=== PATIENT | male | born 1980 | race African-American/Black ===

== ENCOUNTER 2022-11-02 13:51 | Emergency (ER) | payer MEDICAID ==
[~2022-11-02] VITALS: Ht 188 cm; Wt 88.0 kg
[2022-11-02] MEDS ORDERED: LEVETIRACETAM 1000MG PREMIX 100 ML IV ONE (15:45)
[2022-11-02] MEDS ORDERED: ACETAMINOPHEN 325MG TABLET PO ONE (15:45)
[2022-11-02] MEDS ORDERED: TETANUS AND DIPHTHERIA TOX/PF 0.5ML SYR (ADULT) IM ONE (16:45)
[2022-11-02] MEDS ORDERED: LEVOFLOXACIN 500MG PREMIX 100 ML IV ONE (16:45)
[2022-11-02 17:36] LABS: HEMATOCRIT. 43.7 % (42.0-52.0); HEMOGLOBIN. 14.9 g/dL (14.0-18.0); MEAN CORPUSCULAR HEMOGLOBIN 33.4 pg (28.0-32.0); MEAN CORPUSCULAR VOLUME 97.9 fL (80.0-94.0); MEAN PLATELET VOLUME 8.7 fl (7.4-10.4); PLATELET 265 x1000/uL (130-400); RED BLOOD CELL COUNT 4.46 mill/uL (4.7-6.1); RED CELL DISTRIBUTION WIDTH 12.8 % (11.6-14.6)
[2022-11-02 17:43] LABS: CHLORIDE 101 mEq/L (98-107)
[2022-11-02 17:46] LABS: INR 0.9
[2022-11-02 17:50] LABS: ETHANOL BLOOD 133 mg/dL
[2022-11-02 17:54] LABS: CREATINE KINASE 289 IU/L (39-308)
[2022-11-02 18:22] LABS: PLATELET ESTIMATE NORMAL
[2022-11-02 21:10] VITALS: BP 148/88
== END 2022-11-03 06:16 | disposition left against medical advice (07) ==
LOC: ER 14:08 → CANBEDREQ 16:45 → ER 11-03 06:16
DX: S06.300A Unspecified focal traumatic brain injury without loss of consciousness, initial encounter (principal); Y08.89XA Assault by other specified means, initial encounter; Y93.89 Activity, other specified; Y92.89 Other specified places as the place of occurrence of the external cause; Y99.8 Other external cause status; H57.11 Ocular pain, right eye; J45.909 Unspecified asthma, uncomplicated
CPT/HCPCS: 36415; 70450; 70486; 71045; 72125; 73030; 80053; 80320; 82550; 83880; 85025; 85610; 86850; 86900; 86901; 90471; 90714; 96365; 96367; 99291; J1953; J1956; G0480